=== PATIENT | female | born 1965 ===

== ENCOUNTER 2017-08-08 11:22 | Inpatient (IN) | payer BC, OTHER ==
[~2017-08-08] VITALS: Ht 160 cm; Wt 121.1 kg
[2017-08-08 13:01] LABS: Basophils # (auto) 0.1 uL; Basophils % (auto) 0.6 % (0.0-2.0); Eosinophils # (auto) 0.1 uL; Eosinophils % (auto) 0.3 % (0.0-7.0); Hematocrit 43.1 % (36.0-46.0); Hemoglobin 14.1 g/dL (12.2-16.2); Lymphocytes # (auto) 1.3 uL; Lymphocytes % (auto) 5.8 % (10.0-50.0); Mean Corpuscular Hemoglobin 28.2 pg (28.0-32.0); Mean Corpuscular Hgb Conc. 32.6 g/dL (32.0-36.0); Mean Corpuscular Volume 86.5 fL (80.0-100.0); Monocytes # (auto) 0.8 uL; Monocytes % (auto) 3.9 % (0.0-12.0); Neutrophils # (auto) 19.4 uL; Neutrophils % (auto) 89.4 % (37.0-80.0); Platelet Count (auto) 401 10^3/uL (140-450); Red Blood Cells 4.99 10^6/uL (4.0-5.20); Red Cell Distribution Width 14.7 % (11.8-14.3); White Blood Cell 21.7 10^3/uL (4.4-10.8)
[2017-08-08 13:02] LABS: Urine Bacteria FEW /hpf (None Seen); Urine Blood TRACE /uL (Negative); Urine Mucus FEW (None Seen); Urine WBC 1 /hpf (0 - 5)
[2017-08-08 13:17] LABS: Albumin 3.6 g/dL (3.4-5.0); BUN/Creatinine Ratio 22.4; Potassium 4.2 mmol/L (3.5-5.1); Total Protein 7.5 g/dL (6.4-8.2)
[2017-08-08] MEDS ORDERED: SODIUM CHLORIDE 0.9% 1,000 ML IVB ONE (14:44)
[2017-08-08 15:13] LABS: INR 0.96 (0.9-1.15); Partial Thromboplastin Time 27.6 sec (22.64-33.71); Prothrombin Time 10.5 sec (9.37-12.3)
[2017-08-08] MEDS ORDERED: KETOROLAC TROMETH 30 MG/ML 1ML VIAL IV ONE (15:45)
[2017-08-08 15:56] LABS: Lactic Acid w/Reflex 2.5 mmol/L (0.4-2.0)
[2017-08-08] MEDS ORDERED: cefTRIAXone 1GM/10ml IVPUSH 10 ML IV ONE (17:45)
[2017-08-08] MEDS ORDERED: SODIUM CHLORIDE 0.9% 1,000 ML IV ONE (19:30)
[2017-08-08] MEDS ORDERED: metroNIDAZOLE 500MG/100ML 100 ML IV ONE (19:30)
[2017-08-08] MEDS ORDERED: ONDANSETRON HCL 4 MG/2 ML VIAL IV PRN (22:15)
[2017-08-08] MEDS ORDERED: MORPHINE SULFATE 4 MG/ML SYR/VIAL IV PRN (22:15)
[2017-08-08] MEDS ORDERED: ACETAMINOPHEN 500 MG TAB PO PRN (22:15)
[2017-08-08] MEDS ORDERED: HYDROcodone-ACET 5/325MG TAB PO PRN (22:15)
[2017-08-08 23:05] VITALS: BP 128/65
[2017-08-09] MEDS ORDERED: LISI-646 PO (01:02)
[2017-08-09] MEDS ORDERED: FURO20TA3 PO (01:02)
[2017-08-09] MEDS: PIPERACILLIN-TAZOB 3.375GM 50 ML IV SCH ×5 (01:43→23:44)
[2017-08-09 05:00] VITALS: BP 134/66
[2017-08-09 07:24] LABS: Basophils # (auto) 0 uL; Basophils % (auto) 0.3 % (0.0-2.0); Eosinophils # (auto) 0.1 uL; Eosinophils % (auto) 1.3 % (0.0-7.0); Lymphocytes # (auto) 1.4 uL; Lymphocytes % (auto) 11.9 % (10.0-50.0); Mean Corpuscular Hemoglobin 28.8 pg (28.0-32.0); Mean Corpuscular Hgb Conc. 33.3 g/dL (32.0-36.0); Mean Corpuscular Volume 86.5 fL (80.0-100.0); Monocytes # (auto) 0.9 uL; Neutrophils # (auto) 8.9 uL; Neutrophils % (auto) 78.5 % (37.0-80.0); Platelet Count (auto) 301 10^3/uL (140-450); Red Blood Cells 4.51 10^6/uL (4.0-5.20); Red Cell Distribution Width 14.7 % (11.8-14.3); White Blood Cell 11.3 10^3/uL (4.4-10.8)
[2017-08-09 07:46] LABS: BUN/Creatinine Ratio 24.2; Calcium 8.2 mg/dL (8.5-10.1)
[2017-08-09 08:58] VITALS: BP 111/63
[2017-08-09] MEDS: LISINOPRIL 20 MG TAB PO SCH (09:40)
[2017-08-09 12:00] VITALS: BP 132/69
[2017-08-09 18:06] VITALS: BP 132/74
[2017-08-09] MEDS ORDERED: TEMAZEPAM 15 MG CAP PO PRN (21:30)
[2017-08-09 22:00] VITALS: BP 153/76
[2017-08-10 05:00] VITALS: BP 139/71
[2017-08-10] MEDS: PIPERACILLIN-TAZOB 3.375GM 50 ML IV SCH ×2 (05:38→11:53)
[2017-08-10 08:00] VITALS: BP 114/75
[2017-08-10 09:00] VITALS: BP 114/75
[2017-08-10] MEDS: LISINOPRIL 20 MG TAB PO SCH (10:20)
[2017-08-10 12:41] VITALS: BP 114/75
[2017-08-10 13:00] VITALS: BP 139/74
== END 2017-08-10 16:30 | disposition home or self-care (01) | DRG 872 ==
LOC: ER 11:22 → TELE 11:23 → TELE-EAST 23:05
PROVIDERS: ADMIT Nurse Practitioner Family; ATTEND Internal Medicine
DX: A41.9 Sepsis, unspecified organism (principal); E66.01 Morbid (severe) obesity due to excess calories; Z68.42 Body mass index [BMI] 45.0-49.9, adult; N95.9 Unspecified menopausal and perimenopausal disorder; N83.291 Other ovarian cyst, right side; D25.9 Leiomyoma of uterus, unspecified; I10 Essential (primary) hypertension; Z82.49 Family history of ischemic heart disease and other diseases of the circulatory system; Z88.2 Allergy status to sulfonamides
CPT/HCPCS: 36415; 71045; 74176; 76830; 76856; 80048; 80053; 81001; 81025; 82150; 83605; 83690; 83735; 85025; 85610; 85730; 87040; 94761; 96361; 96374; 96375; J1885; J2543; J3490